=== PATIENT | male | born 1950 | race Caucasian/White ===

== ENCOUNTER 2018-10-15 10:25 | Inpatient (IN) | payer MEDICARE, MEDICAID ==
[2018-10-15] VITALS (7 sets, daily range): BP systolic 81–137; BP diastolic 41–69
[~2018-10-15] VITALS: Ht 195.6 cm; Wt 178.3 kg
--- NOTE | ~2018-10-15 | CON ---
[address] [address] CONSULTATION Name: TRISH BLUEStephon Dunlap Room: [address] IN .R.#: [id number] Admission: 10/15/18 Attend Phys: Brenda Kincaid MD Discharge: Date of : 52 Report #: [id number] THIS REPORT FOR: //name// CC: [facility] physician/PCP Brenda Kincaid VISITING [facility] DATE OF SERVICE: 10/16/2018 CHIEF COMPLAINT: Consultation for toenail to evaluate toes due to recent traumatic toenail avulsion. HISTORY OF PRESENT ILLNESS: The patient admitted for sepsis, UTI, hypoglycemia and acute renal failure. 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 He denies injury to the toes. He states his caregiver cleansed his feet and his toenails fell off. He had some bleeding from the right hallux nail bed today. He is insensate to the lower extremity. PHYSICAL EXAMINATION: All toenails are missing. The nail beds have red granulation, with no active bleeding. There is no exposed bone to the nail beds. No inflammation or cardinal signs of infection. Nonpalpable pedal pulses with +3 pitting edema to both legs. No skin lesions noted. IMPRESSION: Status post traumatic toenail avulsions from foot cleansing, no clinical infection. PLAN: The nail beds were cleansed with wound cleanser and dried. They were covered with silver foam and Kerlix gauze. I will see the patient tomorrow for followup. By: 2000 [id number] Leo DPM /nt
--- NOTE | 2018-10-15 10:36 | NUR ---
PT STATES, "CAREGIVER WAS ROUGH ON BILATERAL FEET AND PULLED OFF HIS TOENAILS A COUPLE OF DAYS AGO". FEET AND TOES ARE CURRENTLY WRAPPED WITH BANDAGES. PT IS A PARAPLEGIC AND STATES, "HE HAS NO FEELING ON HIS FEET"
[2018-10-15 10:58] LABS: URINE BLOOD 1+ (Negative); URINE CLARITY CLEAR; URINE COLOR YELLOW; URINE GLUCOSE-RANDOM NEGATIVE (Negative); URINE KETONES NEGATIVE (Negative); URINE NITRITE-REFLEX NEGATIVE (Negative); URINE PROTEIN 1+ (Negative); URINE SPECIFIC GRAVITY 1.025 (1.005-1.030)
[2018-10-15 11:02] LABS: ICTOTEST (BILI CONFIRMATORY) Negative (Negative); URINE BILIRUBIN 1+ (Negative); URINE LEUKOCYTES-REFLEX 3+ (Negative)
[2018-10-15 11:04] LABS: ABSOLUTE LYMPHOCYTES 0.9 thou/uL (0.8-5.3); ABSOLUTE MONOCYTES 0.7 thou/uL (0.0-1.2); ABSOLUTE NEUTROPHILS 7.6 thou/uL (1.6-8.1); BASOPHILS 0.5 %; EOSINOPHILS 0.5 %; HEMATOCRIT 33.7 % (42.0-52.0); HEMOGLOBIN 11.3 gm/dL (14.0-18.0); MCHC 33.6 g/dL (28.0-37.0); MCV 98.4 fL (80.0-100.0); MONOCYTES 7.4 %; MPV 8.1 fl. (7.2-11.1); NUCLEATED RBCS 0 /100WBC; PLATELET COUNT* 152 thou/uL (150-400); POLYS 81.6 %; RBC 3.42 mil/uL (4.50-6.00); RDW-CV 16.2 % (10.5-14.5); WBC 9.3 thou/uL (4.0-11.0)
[2018-10-15 11:05] LABS: ANION GAP 9 mmol/L (7-16); BUN 28 mg/dL (7-18); CALCIUM 8.5 mg/dL (8.5-10.1); CHLORIDE 106 mmol/L (98-107); CO2 24 mmol/L (21-32); CREATININE 2.3 mg/dL (0.6-1.3); GLUCOSE 80 mg/dL (70-99); POTASSIUM 3.7 mmol/L (3.5-5.1); SODIUM 139 mmol/L (136-145)
[2018-10-15 11:06] LABS: APTT 30.3 Seconds (25.0-31.3); INR 1.1; PROTIME 11.1 Seconds (9.20-11.50)
[2018-10-15 11:18] LABS: SQUAMOUS 0-3 Few /LPF (0-3)
--- NOTE | 2018-10-15 11:18 | NUR ---
PTS CAREGIVER TEARNEY AT BEDSIDE.
[2018-10-15 11:19] LABS: URINE WBC-REFLEX >25 Many /HPF (0-5); WBC CLUMPS Moderate (None Seen)
[2018-10-15 11:20] LABS: ALKALINE PHOSPHATASE 81 U/L (46-116); NT-PRO BRAIN NAT PEPTIDE 864 pg/mL (<300); SGOT 16 U/L (15-37); SGPT 9 U/L (30-65); TOTAL BILIRUBIN 0.6 mg/dL (<0.1-1.0); TROPONIN-I LEVEL <0.06 ng/mL (<0.06)
[2018-10-15 11:21] LABS: BACTERIA-REFLEX >30 Many /HPF (None Seen); URINE RBC 0-2 Rare /HPF (0-2)
[2018-10-15 11:22] LABS: MUCUS 0-3 Light strn/LPF (None Seen)
[2018-10-15 11:23] LABS: COARSE GRANULAR CASTS 0-3 Few /LPF (None Seen); CRYSTALS None Seen /LPF (None Seen)
--- NOTE | 2018-10-15 15:31 | EKG ---
[place] [address] ELECTROCARDIOGRAM REPORT Name: MARIA BLUE Room: [address] ADM IN .R.#: [id number] Admission: 10/15/18 Attend Phys: Brenda Kincaid MD Discharge: Date of : 52 Report #: [id number] THIS REPORT FOR: //name// [facility] ED Test Date: 2018-10-15 Test Time: 10:39:00 Pat Name: MARIA BLUE Department: Room: [facility] Gender: M Metrologist: YVONNE : 1950 Requested By: Kenny Sharif Order Number: [id number] MD: Goyo Fraser Measurements Intervals [place] Rate: 109 P: 258 WV: 220 QRS: -59 QRSD: 132 T: 91 QT: 400 QTc: 539 Interpretive Statements Sinus or ectopic atrial tachycardia Prolonged [place] interval Probable left atrial enlargement Left bundle branch block No previous ECG available for comparison Electronically Signed On 10-15-2018 15:31:08 FILER AND SANDER by Goyo Fraser [email or web address] <ELECTRONICALLY SIGNED> By: Goyo Fraser MD, FAC 10/15/18 1531 [id number] [id number] Goyo Fraser MD, [facility] /EPI
[2018-10-15] MEDS ORDERED: PERCOCET 7.5-31 EACH PO (17:38)
[2018-10-15] MEDS ORDERED: CRESTOR10 MG PO (17:38)
[2018-10-15] MEDS ORDERED: GABAPENTIN 100100 MG PO (17:38)
[2018-10-15] MEDS ORDERED: LISINOPRIL20 MG PO (17:39)
[2018-10-15] MEDS ORDERED: LISINOPRIL40 MG PO (17:39)
[2018-10-15] MEDS ORDERED: ALLOPURINOL 10100 M2 PO (17:40)
[2018-10-15] MEDS ORDERED: NOVOLOG100 UNIT/M SUBQ (17:41)
[2018-10-15] MEDS ORDERED: ULTRAM 50MG TAB50 MG PO (17:42)
[2018-10-15] MEDS ORDERED: FLEXERIL PO (17:43)
[2018-10-15] MEDS ORDERED: LEVEMIR100 UNIT/1 SUBQ (17:43)
--- NOTE | 2018-10-15 19:00 | NUR ---
10/15: New admit from ED this afternoon. Patient talkative and in good spirits. Blood sugar in the 170's, D5W stopped as patient was eating a good lunch, eating dinner now. Probable downgrade tomorrow.
[2018-10-16] VITALS (20 sets, daily range): BP systolic 93–158; BP diastolic 45–82
[2018-10-16 02:52] LABS: HEMATOCRIT 27.1 % (42.0-52.0); MCH 33.5 pg (26.0-34.0); MCHC 33.9 g/dL (28.0-37.0); MCV 98.8 fL (80.0-100.0); MPV 7.8 fl. (7.2-11.1); RBC 2.74 mil/uL (4.50-6.00); RDW-CV 15.9 % (10.5-14.5); WBC 5.4 thou/uL (4.0-11.0)
[2018-10-16 02:55] LABS: HEMOGLOBIN 9.2 gm/dL (14.0-18.0)
[2018-10-16 02:57] LABS: CALCIUM 7.8 mg/dL (8.5-10.1); CREATININE 1.8 mg/dL (0.6-1.3); MAGNESIUM 1.5 mg/dL (1.8-2.4); POTASSIUM 4.3 mmol/L (3.5-5.1)
--- NOTE | 2018-10-16 06:01 | NUR ---
VITALS STABLE THROUGHOUT SHIFT, AFEBRILE, SLEEPING THROUGH MOST OF THE NIGHT. PRN MEDS GIVEN FOR KNEE AND BACK PAIN. PATIENT REFUSES TO BE TURNED IN BED. ELECTROLYTE REPLACEMENT THERAPY ORDRED PER PROTOCOL, WOUND CARE AND CASE MANAGEMENT CONSULT ORDERED. CREATININ 1.8 THIS MORNING, WHICH IS BASELINE FOR PATIENT. RIGHT LEG DRESSING CHANGED, NON-ADHESIVE PAD AND KURLIX USED. SITE ACTIVELY BLEEDING, MEDIUM IN AMOUNT. PATIENT DENIES PAIN TO TOES. CAREGIVER CAME TO VISIT PATIENT AROUND 1999, PATIENT SEEMS COMFORTABLE AROUND HER. SHE REPORTS PATIENT USED TO LIVE IN A TOXIC ENVIRONMENT ABOUR SIX YEARS AGO, BUT NOW LIVES IN HER BASEMENT AND SHE IS THE ONE THAT CARES FOR HIM. REPORTS HIS TOE NAILS FELL OFF SHE WAS CLEANING THEM. PATIENT REPORTS HE IS THE ONE WHO KEPT TELLING HER TO CLEAN IT EVEN AFTER TWO OF HIS TOE NAILS FELL OFF. SHE REPORTS SHE WILL BE BACK TO CHECK ON HIM TODAY. CALL LIGHT WITHIN REACH.
--- NOTE | 2018-10-16 16:15 | NUR ---
10/16 days: Patient feeling at baseline. Patient is awaiting podiatry consult anxiously. He is confident one way or another the he is going home tomorrow. Patient was downgraded to telemetry status. Uneventful shift. Right foot with some oozing but has slowed down.
[2018-10-17] VITALS (20 sets, daily range): BP systolic 103–158; BP diastolic 45–124
[2018-10-17 05:19] LABS: HEMATOCRIT 26.6 % (42.0-52.0); MCH 33.5 pg (26.0-34.0); MCHC 33.9 g/dL (28.0-37.0); MCV 98.7 fL (80.0-100.0); MPV 7.8 fl. (7.2-11.1); RBC 2.7 mil/uL (4.50-6.00); RDW-CV 16.1 % (10.5-14.5)
[2018-10-17 05:24] LABS: CALCIUM 7.8 mg/dL (8.5-10.1); CREATININE 1.6 mg/dL (0.6-1.3); MAGNESIUM 1.7 mg/dL (1.8-2.4); POTASSIUM 3.8 mmol/L (3.5-5.1)
--- NOTE | 2018-10-17 10:17 | NUR ---
PT DESIRES TO BE TAKEN OFF P.T. SERVICES. REFER TO VARIANCE FILED UNDER P.T. INTERVENTIONS. ANUPAMA PRADHAN, MPT
--- NOTE | 2018-10-17 10:45 | NUR ---
SPOKE WITH PT, PT ALERT AND ORIENTED AND ABLE TO ANSWER ALL QUESTIONS. PT LIVES DOWNSTAIRS IN A HOUSE AND ONE OF HIS CARE GIVERS, JULIA, LIVES UPSTAIRS. HE HAS CAREGIVERS 7 DAYS A WEEK, 6 HOURS A DAY. HE HAS A VISITING DOCTOR THAT COMES TO SEE HIM. [facility]. HE HAS AN ELECTRIC WHEELCHAIR THAT HE 'GETS IN TO OCCASSIONALLY BUT MOSTLY I AM IN BED.' PT STATES HE HAS BEEN MANAGING FINE AT HOME AND HAS NO DISCHARGE NEEDS. HE SAID HIS SISTER YULIET YEAGER IS HIS DPOA 'BUT IF YOU CALL HER, SHE IS JUST GOING TO CALL ME AND ASK ME WHAT I WANT TO DO.' PT SAID HE WILL NEED AN AMBULANCE TO GET HOME THERE IS NO OTHER WAY TO GET HIM HOME AND INTO THE HOUSE. DISCUSSED ROLE OF CASE MGT, WILL CONTINUE TO FOLLOW.
--- NOTE | 2018-10-17 10:53 | NUR ---
Nutrition: Pt assessed for pressure ulcer on back. Lost toe nails, bandaged. Alb 3, BG 155. Eating 50-80% of CHO controlled diet. Has wound care and podiatry. On insulin. Wt: 292#. RD ordered Danny b.i.d. Increased nutrient needs R/T wond healing AEB chart review. Mild risk. Will follow per protocol.
--- NOTE | 2018-10-17 13:20 | NUR ---
WOUND CARE NOTE: CONSULT RECEIVED FOR TOE NAILS FELL OFF. PATIENT WITH TOENAIL AVULSIONS TO ALL TEN TOES. DRY, RED WOUND BEDS. GENTLY CLEANSED WITH WOUND CLEANSER, PATTED DRY. APPLIED OPTIFOAM AG AND SECURED WITH KERLIX. PATIENT TOLERATED DRESSING CHANGE WELL. PATIENT ALSO HAS WOUND TO SACRUM, BUT DECLINED TO ALLOW ME TO SEE IT AT THIS TIME. PATIENT DESIRED TO SLEEP. RECOMMEND DAILY DRESSING CHANGES TURN Q2 HOURS ENCOURAGE GOOD NUTRTION/HYDRATION
[2018-10-18] VITALS (7 sets, daily range): BP systolic 119–147; BP diastolic 53–77
[2018-10-18 03:40] LABS: HEMATOCRIT 25.8 % (42.0-52.0); HEMOGLOBIN 8.7 gm/dL (14.0-18.0); MCH 33.4 pg (26.0-34.0); MCHC 33.9 g/dL (28.0-37.0); MCV 98.6 fL (80.0-100.0); MPV 8.5 fl. (7.2-11.1); RBC 2.62 mil/uL (4.50-6.00); RDW-CV 15.7 % (10.5-14.5)
[2018-10-18 03:52] LABS: CALCIUM 7.7 mg/dL (8.5-10.1); CREATININE 1.7 mg/dL (0.6-1.3); MAGNESIUM 2.1 mg/dL (1.8-2.4); POTASSIUM 3.7 mmol/L (3.5-5.1)
--- NOTE | 2018-10-18 06:19 | NUR ---
VITALS STABLE THROUGHOUT SHIFT, PATIENT SLEEPING THROUGH MOST OF THE NIGHT. REFUSES MORNING MEDS, REPORTS HE "JUST WANTS TO SLEEP RIGHT NOW, I'LL TAKE THEM LATER". Q2 TURNS FOR SKIN INTEGRITY. CALL LIGHT WITHIN REACH.
--- NOTE | 2018-10-18 11:38 | NUR ---
PT A/O X'S 4. REFUSING TURNS THIS AM. PT TOLERATING DIET. MEDICATIONS ADMINISTERED PER OCT. EKG OBTAINED FOR POSSIBLE RHYTHM CHANGES. ON MONITOR PT APPEARS TO BE IN AFIB AT TIMES. RECEIVED ORDER TO CONSULT CARDIOLOGY IF PT IN AFIB. PER EKG PT IN SR. NO CONSULT OBTAINED.
--- NOTE | 2018-10-18 11:59 | NUR ---
PT. REQUESTING TO BE TAKEN OFF OF O.T. EVALUATIONS/INTERVENTIONS LIST. DOES NOT WISH TO RECEIVE SERVICES. TALISHA YEAGER, OTR/L
--- NOTE | 2018-10-18 18:57 | NUR ---
PT ARRIVED TO ROOM 218 FROM ICU AT APPROX 1530, PTS VSS, SR ON THE MONITOR. PREVIOUS RN ASSESMENT REVIEWED, THIS RN AGREES. PT REFUSED TO TURN FOR SKIN ASSESMENT, REFUSED A BATH, REFUSED REPOSITIONING, DID ALLOW ABDOMINAL SKIN FOLDS TO BE WASHED AND NEW INTERDRY PLACED. PT EDUCATED ON IMPORTANCE OF ALL THE ABOVE, REPEATS THAT HE "DOES NOT NEED IT". FALL PRECAUTIONS IN PLACE.
[2018-10-19] VITALS: BP 128/66
[2018-10-19 04:00] VITALS: BP 144/72
--- NOTE | 2018-10-19 06:51 | NUR ---
PATIENT RESTED IN BED, NO ACUTE CHANGES. PATIENT DID NOT SHOW SIGNS OF DISTRESS. PATIENT EDUCATED OF THE IMPORTANCE OF Q TWO TURNS AND NUTRITION. CALL LIGHT WITHIN REACH, HOURLY ROUNDING OBSERVED.
[2018-10-19 07:30] VITALS: BP 144/66
[2018-10-19 11:22] VITALS: BP 144/66
[2018-10-19 16:00] VITALS: BP 144/72
[2018-10-19 20:00] VITALS: BP 145/58
--- NOTE | 2018-10-19 20:00 | NUR ---
RECEIVED REPORT AND ASSUMED CARE OF PT, ASSESSMENT COMPLETED. LONG DISCUSSION WITH PT CONCERNING NEED TO OVER HIMSELF OCC SINCE HE ABSOLUTELY REFUSES TO BE TURNED. PT STATED HE WAS ON A SPECIALITY BED FOR A REASON AND HE DOESN'T TURN AT HOME SO NOT GOING TO START. ENCOURAGED TO SHIFT OCC FOR LUNG MOVEMENT. SCROTAL AND ANAL AREA WITH MOISTURE EXCORATION, INTRADRY PLACED IN GROIN AREA, UNDER SCROTUM AND IN OTHER GROIN. SUPRA PUBIC PATENT. TELEMETRY ON SHOWING SR. PT PLEASANT AND TALKATIVE. WILL CONT TO MONITOR AND ASSIST NEEDED.
[2018-10-20] VITALS: BP 139/71
[2018-10-20 04:00] VITALS: BP 137/72
--- NOTE | 2018-10-20 06:48 | NUR ---
AWAKE MOST OF THE NIGHT BY CHOICE, WATCHING TV. PRN PAIN MEDS GIVEN FOR HIP, KNEE, BUTTOCKS AND SCROTAL PAIN-EFFECTIVE. CONT TO REFUSE TO BE REPOSITIONED. EDUCATION GIVEN. NO CHANGE IN ASSESSMENT. TELEMETRY CONT SHOW SR. HS GOALS OF REST AND COMFORT ACHIEVED. HOURLY ROUNDING OBSERVED.
--- NOTE | 2018-10-20 07:32 | CON ---
[address] [address] CONSULTATION Name: PROSPERSymoneKIRILLTRISHStephon Dunlap Room: [address] IN M.R.#: [id number] Admission: 10/15/18 Attend Phys: Brenda Kincaid MD Discharge: Date of : 52 Report #: [id number] THIS REPORT FOR: //name// CC: [facility] physician/PCP Brenda Kincaid VISITING OT DATE OF SERVICE: 10/17/2018 INFECTIOUS DISEASE CONSULTATION ATTENDING PHYSICIAN: Dr. Kincaid. REASON FOR EVALUATION: Gram-positive cocci septicemia, complicated urinary tract infection due to gram-negative tri, setting of bilateral lower extremity paralysis, diabetes mellitus. HISTORY OF PRESENT ILLNESS: Chart reviewed, patient examined, 68-year-old who has significant medical history including paralysis below the waist, also has diabetes mellitus, chronic renal failure, cirrhosis as well, presented to the Emergency Room with complaints of hypoglycemia. He had profound encephalopathy as well. It is notable he is wheelchair bound, has suprapubic catheter. Due to concern about significant disease process, probable sepsis, he was treated in the Intensive Care Unit, resuscitated. Initial creatinine was 2.3. Lactic acid 1.9. Empirically placed on therapy with vancomycin as well as levofloxacin. He is better today. One out of two blood cultures with growth of gram-positive cocci. Urine culture, setting of marked pyuria with gram-negative tri. ALLERGIES: NIACIN. CURRENT MEDICATIONS: Include oxycodone, gabapentin, allopurinol, lisinopril, levofloxacin, pantoprazole, vancomycin, atorvastatin, enoxaparin, diphenhydramine, cyclobenzaprine, p.r.n. analgesics, antiemetics, insulin. PAST MEDICAL HISTORY: Diabetes mellitus type 2, insulin requiring, paralysis below the waist, history of renal insufficiency, advanced liver disease. SOCIAL HISTORY: Nonsmoker, no ethanol or illicit drug use. FAMILY HISTORY: Noncontributory. REVIEW OF SYSTEMS: Denies any significant pulmonary or gastrointestinal related complaints. PHYSICAL EXAMINATION: GENERAL: He is alert, cooperative, in [id number] [place] [address] CONSULTATION Name: MARIA BLUE Room: [address] IN [facility]#: [id number] Admission: 10/15/18 Attend Phys: Brenda Kincaid MD Discharge: Date of : 52 Report #: [id number] chronically ill appearing. VITAL SIGNS: Temperature 99, pulse 109, respirations 17, blood pressure is 128/74. SKIN: Warm, dry. HEENT: Normocephalic. Extraocular muscles intact. NECK: Supple. LUNGS: A few scattered crackles. HEART: Regular, tachycardic. I do not appreciate any murmur. ABDOMEN: Obese, soft, nontender. Catheter, suprapubic region. There is no evidence of cellulitis. GENITOURINARY AND RECTAL: Deferred. LABORATORY DATA: As noted, blood culture 1 out of 2 with gram-positive cocci. CBC: Initially white count 9.3, repeat was 3.0, H and H 9.0 and 26.6, platelets of 106. Electrolytes: Sodium 137, potassium 3.8, chloride 110, bicarbonate is 21, anion gap of 6, BUN and creatinine 15 and 1.6. Urine culture greater than 10 to 5th negative gram-negative rods. Liver functions otherwise unremarkable. Albumin of 3.0, total protein of 7.0. Estimated GFR of 29. Urinalysis, greater than 30 bacteria, greater than 25 white cells. Chest x-ray, no acute process. ASSESSMENT: Encephalopathy, likely multifactorial and appears to have a complicated urinary tract infection, likely high risk in this setting. Continue the empiric antimicrobials. We will adjust the gram-negative coverage. Secondly has positive blood cultures. This may or may not represent a true bloodstream infection. Thinking short-term, we will continue vancomycin pending results of the ID of the isolate. Continue to monitor expectantly. Wean off support as allowed. <ELECTRONICALLY SIGNED> By: Josep Gil MD 10/20/18 0732 1055 [id number] Gil MD /nt
[2018-10-20 08:00] VITALS: BP 151/75
--- NOTE | 2018-10-20 08:00 | NUR ---
PT LYING IN BED, HOB ELEVATED, CALL LIGHT IN REACH, FALL PRECAUTIONS IN PLACE. FUR JOINER TRACING SINUS RHYTHM, LS DIMINISHED IN ALL LOBES, ON RA. VSS, PT DENIES ANY PAIN AT THIS TIME. WILL CONT POC.
--- NOTE | 2018-10-20 10:51 | NUR ---
WOUND NURSE: RECEIVED REPORT FROM STAFF NURSE CARING FOR PATIENT THAT HE HAD PREVIOUSLY REFUSED TO HAVE SKIN ASSESSMENT TO BACKSIDE OR TO BE REPOSITIONED OFF HIS BACK. PATIENT AGREED TO ALLOW THIS NURSE TO ASSESS AND PROVIDE WOUND CARE TO LESIONS IN THIS LOCATION. PATIENT HAS A SCAR WITH AN OPENING ON THE LEFT SACRUM AND WHICH MEASURES 0.5 X 1.2 X 1.0 CM. THERE IS NO PERIWOUND REDNESS, WARMTH, OR INDURATION; AND THE WOUND BED APPEARS TO BE WELL ESTABLISHED WITH BEEFY RED GRANULATION TISSUE. THERE IS A SMALL TO MODERATE AMOUNT OF SEROUSANGUINOUS DRAINAGE PRESENT. THERE IS ALSO AN AREA OF SKIN BREAKDOWN ON THE RIGHT SACRUM PRESENTING WITH PARTIAL THICKNESS TISSUE LOSS AND SCANT AMOUNT OF SANGUINOUS DRAINAGE, AND MEASURES 1.0 X 0.7 X 0.1 CM. THESE AREAS WERE CLEANSED WITH WOUND CLEANSER AND GAUZE, THEN APPLIED SKIN PREP TO PERIWOUND TISSUE; THEN APPLIED AQUACEL AG TO EACH WOUND BED, THEN COVERED EACH WITH A BORDERED FOAM DRESSING. PLAN TO CHANGE DRESSING EVERY 3 DAYS AND NEEDED. PATIENT ALSO HAS AN AREA OF SKIN BREAKDOWN ON THE POSTERIOR ASPECT OF HIS SCROTUM WHICH CONTAINS PARTIAL THICKNESS TISSUE LOSS. THE AFFECTED AREA WAS CLEANSED WITH WOUND CLEANSER AND GAUZE, THEN APPLIED SKIN PREP TO PERIWOUND, THEN APPLIED AQUACEL AG TO LESION AND COVERED WITH A SURESITE TRANSPARENT DRESSING. THIS WAS TOLERATED WELL BY THE PATIENT. PATIENT WAS INSTRUCTED ON THE IMPORTANCE OF FREQUENT REPOSITION OFF HIS BACKSIDE, BUT REFUSES TO DO SO. PATIENT DOES NOT EXPLAIN REASON FOR HIS NONCOMPLIANCE WITH REPOSITIONING. AND SMALL AMOUNT OF SEROUSANGUINOUS DRAINAGE.
--- NOTE | 2018-10-20 11:01 | EKG ---
[place] [address] ELECTROCARDIOGRAM REPORT Name: MARIA BLUE Room: [address] ADM IN M.R.#: [id number] Admission: 10/15/18 Attend Phys: Brenda Kincaid MD Discharge: Date of : 52 Report #: [id number] THIS REPORT FOR: //name// [facility] Test Date: 2018-10-18 Test Time: 09:12:31 Pat Name: MARIA BLUE Department: Room: [facility] Gender: M After School Counselor: : 1950 Requested By: John Guido Order Number: [id number] MD: Romeo Edmond Measurements Intervals [place] Rate: 91 P: -29 FL: 228 QRS: -55 QRSD: 132 T: 90 QT: 381 QTc: 469 Interpretive Statements Sinus rhythm Prolonged [place] interval Left bundle branch block Compared to ECG 10/15/2018 10:39:00 No significant changes Electronically Signed On 10-20-2018 11:01:17 WET ROOM WORKER by Romeo Edmond [email or web address] <ELECTRONICALLY SIGNED> By: Romeo Edmond MD, [facility] 10/20/18 1101 1 Romeo Edmond MD, [facility] /EPI
[2018-10-20 11:29] VITALS: BP 151/75
[2018-10-20 11:43] VITALS: BP 151/75
--- NOTE | 2018-10-20 11:44 | NUR ---
Pt is discharging to home today, ambulance transport set up for 1pm. Resumption orders faxed to [facility] [phone]
[2018-10-20] MEDS ORDERED: KEFLEX500 M1 PO (12:07)
[2018-10-20] MEDS ORDERED: TRAMADOL 50 MG50 MG PO (12:17)
--- NOTE | 2018-10-20 13:25 | NUR ---
PT DISCHARGED HOME VIA AMBULANCE. IV AND RESEARCH CONSULTANT REMOVED, EDUCATED ON ALL DISCHARGE INSTRUCTIONS INCLUDING MEDICATIONS, PT WILL CONT WITH HOME HEALTH AND VPA, PT STATES UNDERSTANDING.
== END 2018-10-20 13:15 | disposition home health service (06) | DRG 871 ==
LOC: M.ERS 10:25 → M.ICU 12:25 → M.TBA-ER 12:25 → M.ICU 14:51 → M.2W 10-18 14:43
PROVIDERS: Family Medicine; Internal Medicine; ADMIT Internal Medicine
DX: A41.51 Sepsis due to Escherichia coli [E. coli] (principal); N17.0 Acute kidney failure with tubular necrosis; G82.20 Paraplegia, unspecified; N39.0 Urinary tract infection, site not specified; G93.40 Encephalopathy, unspecified; D61.818 Other pancytopenia; S99.922A Unspecified injury of left foot, initial encounter; S99.921A Unspecified injury of right foot, initial encounter; E11.649 Type 2 diabetes mellitus with hypoglycemia without coma; K74.60 Unspecified cirrhosis of liver; N18.9 Chronic kidney disease, unspecified; R31.9 Hematuria, unspecified; S91.209A Unspecified open wound of unspecified toe(s) with damage to nail, initial encounter; X58.XXXA Exposure to other specified factors, initial encounter; E11.22 Type 2 diabetes mellitus with diabetic chronic kidney disease; Z79.4 Long term (current) use of insulin; Z79.899 Other long term (current) drug therapy; Y93.89 Activity, other specified; Y92.89 Other specified places as the place of occurrence of the external cause; Y99.8 Other external cause status; Z88.8 Allergy status to other drugs, medicaments and biological substances